=== PATIENT | male | born 1955 | race Caucasian/White ===

== ENCOUNTER 2017-12-03 12:36 | Emergency (ER) | payer MEDICAID ==
[~2017-12-03] VITALS: Ht 172.7 cm; Wt 74.4 kg
[~2017-12-03 12:36] MED LIST: HYDR-569 PO
[2017-12-03 17:22] VITALS: BP 110/89
== END 2017-12-03 17:25 | disposition home or self-care (01) ==
LOC: ER 12:37
DX: K94.09 Other complications of colostomy (principal); F17.200 Nicotine dependence, unspecified, uncomplicated; Z92.21 Personal history of antineoplastic chemotherapy; Z85.51 Personal history of malignant neoplasm of bladder; Z90.89 Acquired absence of other organs; Z88.0 Allergy status to penicillin; Z98.890 Other specified postprocedural states
CPT/HCPCS: 99283

== ENCOUNTER 2019-11-16 15:32 | Emergency (ER) | payer MEDICAID ==
[~2019-11-16] VITALS: Ht 172.7 cm; Wt 65.9 kg
[~2019-11-16 15:32] MED LIST changes: +HYDR-4383 PO; -HYDR-569 PO
[2019-11-16 16:34] LABS: BASOPHILS # (AUTO) 0.1 X10'3 (0-0.2); BASOPHILS % (AUTO) 0.6 % (0-1); EOSINOPHILS # (AUTO) 0.5 X10'3 (0-0.9); EOSINOPHILS % (AUTO) 5.5 % (0-6); HEMATOCRIT 45.3 % (42.0-52.0); HEMOGLOBIN 15.4 g/dl (14.0-17.9); LYMPHOCYTES # (AUTO) 2.5 X10'3 (1.1-4.8); LYMPHOCYTES % (AUTO) 27.5 % (21-51); MEAN CORPUSCULAR HEMOGLOBIN 32.7 PG (27.0-31.0); MEAN CORPUSCULAR VOLUME 96.1 FL (78-98); MEAN PLATELET VOLUME 9.8 FL (7.4-10.4); MONOCYTES % (AUTO) 11.4 % (2-12); PLATELET COUNT 199 X10'3 (140-440); RED BLOOD COUNT 4.72 X10'6 (4.70-6.10); RED CELL DISTRIBUTION WIDTH 14.7 % (11.5-14.5); WHITE BLOOD COUNT 9.1 X10'3 (4.5-11.0)
[2019-11-16 16:48] LABS: ALANINE AMINOTRANSFERASE 16 U/L (12-78); ALBUMIN 3.6 G/DL (3.4-5.0); ALBUMIN/GLOBULIN RATIO 1.1 (1.1-1.5); ALKALINE PHOSPHATASE 68 IU/L (46-116); ANION GAP 2 (8-16); ASPARTATE AMINO TRANSFERASE 20 U/L (10-37); BILIRUBIN,TOTAL 0.5 MG/DL (0.1-1.0); BLOOD UREA NITROGEN 14 MG/DL (7-18); BUN/CREATININE RATIO 13.3 (5.4-32.0); CALCIUM 8.6 MG/DL (8.5-10.1); CHLORIDE 107 MMOL/L (99-107); CREATININE 1.05 MG/DL (0.60-1.10); GLUCOSE 86 MG/DL (70-104); SODIUM 141 MMOL/L (135-145); TOTAL PROTEIN 6.9 G/DL (6.4-8.2); eGFR 71 ML/MIN
[2019-11-16] MEDS ORDERED: iohexol 300mg/ml 100ml inj. ONE (16:56)
[2019-11-16 16:59] LABS: LIPASE 140 U/L (73-393); MAGNESIUM 1.9 MG/DL (1.5-2.4)
--- NOTE | 2019-11-16 18:20 | NUR ---
Assisted pt w/ ostomy bag replacement; urine obtained. Per EDMD okay to use urnie frm bag rathern than wait for fresh urine. Urine out: 200ml
[2019-11-16 18:30] LABS: CLARITY,URINE CLOUDY (Clear); COLOR,URINE YELLOW (Yellow); GLUCOSE, URINE NEGATIVE (Neg); KETONES,URINE NEGATIVE (Neg); LEUKOCYTE ESTERASE ,URINE NEGATIVE (Neg); NITRITES, URINE POSITIVE (Neg); OCCULT BLOOD,URINE NEGATIVE (Neg); PH,URINE 8.5 (4.8-8.0); PROTEIN,URINE NEGATIVE (Neg); UROBILINOGEN,URINE 0.2 E.U/dL (0.2-1.0)
[2019-11-16 18:35] LABS: UA COLLECTION TYPE OTHER
[2019-11-16] MEDS ORDERED: CefTRIAXone 2gm/D5W 50ml 50 ML IV ONE ×2 (18:40→18:50)
[2019-11-16] MEDS ORDERED: SULF1TAB49 PO (18:40)
[2019-11-16 18:41] LABS: BACTERIA,URINE 3+ /HPF (Neg); MUCUS STRANDS MODERATE /LPF (Neg); RBC,URINE NONE SEEN /HPF (0-2); SQUAMOUS EPITHELIAL CELL,UR NONE SEEN /LPF (FEW)
--- NOTE | 2019-11-16 18:47 | NUR ---
NOTIFIED BY PHARMACY OF RISK OF REACTION TO CEFTRIAXONE R/T PENICILLIN ALLERGY. NOTIFIED AND HE CONFIRMED ORDER FOR CEFTRIAXONE.
[2019-11-16 19:27] VITALS: BP 113/66
== END 2019-11-16 19:48 | disposition home or self-care (01) ==
LOC: ER 15:33
DX: N39.0 Urinary tract infection, site not specified (principal); R53.1 Weakness; Z90.81 Acquired absence of spleen; Z93.6 Other artificial openings of urinary tract status; Z98.890 Other specified postprocedural states; Z85.51 Personal history of malignant neoplasm of bladder; Z88.0 Allergy status to penicillin; Z79.899 Other long term (current) drug therapy
CPT/HCPCS: 36415; 71045; 74177; 80053; 81001; 83605; 83690; 83735; 83880; 84439; 84443; 84484; 85025; 87077; 87088; 87186; 93005; 96365; 99284; J0696; Q9967

== ENCOUNTER 2020-08-20 10:33 | Inpatient (IN) | payer MEDICAID ==
[~2020-08-20] VITALS: Ht 182.9 cm; Wt 73.6 kg
[2020-08-20] VITALS (11 sets, daily range): BP systolic 94–138; BP diastolic 55–80
[~2020-08-20 10:33] MED LIST changes: +atropine 0.1mg/ml 10ml syringe ONE; +calcium chloride 100 MG/1 ML inj IV ONE; +etomidate 2mg/ml inj. ONE; +rocuronium 10mg/ml inj IV ONE
[2020-08-20] MEDS ORDERED: calcium chloride 100 MG/1 ML inj IV ONE (10:35)
[2020-08-20] MEDS ORDERED: amiodarone 150mg/dext, iso-os 100 ML IV ONE (10:35)
[2020-08-20 11:03] LABS: BASOPHILS # (AUTO) 0.1 X10'3 (0-0.2); BASOPHILS % (AUTO) 0.9 % (0-1); EOSINOPHILS # (AUTO) 0.8 X10'3 (0-0.9); EOSINOPHILS % (AUTO) 6.6 % (0-6); HEMATOCRIT 43.5 % (42.0-52.0); HEMOGLOBIN 13.9 g/dl (14.0-17.9); LYMPHOCYTES # (AUTO) 5.6 X10'3 (1.1-4.8); LYMPHOCYTES % (AUTO) 45.8 % (21-51); MEAN CORPUSCULAR HEMOGLOBIN 32.8 PG (27.0-31.0); MEAN CORPUSCULAR HGB CONC 32.1 g/dL (33.0-36.5); MEAN CORPUSCULAR VOLUME 102.3 FL (78-98); MEAN PLATELET VOLUME 10.3 FL (7.4-10.4); MONOCYTES % (AUTO) 8.5 % (2-12); NEUTROPHILS # (AUTO) 4.7 X10'3 (1.8-7.7); NEUTROPHILS % (AUTO) 38.2 % (42-75); PLATELET COUNT 187 X10'3 (140-440); RED BLOOD COUNT 4.25 X10'6 (4.70-6.10); RED CELL DISTRIBUTION WIDTH 14.7 % (11.5-14.5); WHITE BLOOD COUNT 12.3 X10'3 (4.5-11.0)
[2020-08-20] MEDS ORDERED: rocuronium 10mg/ml inj IV ONE ×2 (11:05→13:30)
[2020-08-20] MEDS ORDERED: midazolam 100mg in NS 100ml 100 ML IV PRN (11:15)
[2020-08-20] MEDS ORDERED: fentaNYL/PF 50MCG/1 ML 2ML syringe IV PRN (11:15)
[2020-08-20 11:26] LABS: ALANINE AMINOTRANSFERASE 81 U/L (12-78); ALBUMIN 3.1 G/DL (3.4-5.0); ALKALINE PHOSPHATASE 71 IU/L (46-116); ANION GAP 19 (8-16); ASPARTATE AMINO TRANSFERASE 107 U/L (10-37); BILIRUBIN,TOTAL 0.3 MG/DL (0.1-1.0); BLOOD UREA NITROGEN 26 MG/DL (7-18); BUN/CREATININE RATIO 15.9 (5.4-32.0); CALCIUM 8.4 MG/DL (8.5-10.1); CHLORIDE 105 MMOL/L (99-107); CREATININE 1.64 MG/DL (0.60-1.10); GLUCOSE 265 MG/DL (70-104); MAGNESIUM 2.6 MG/DL (1.5-2.4); POTASSIUM 3.6 MMOL/L (3.5-5.1); SODIUM 141 MMOL/L (135-145); TOTAL CARBON DIOXIDE 17.1 MMOL/L (24-32); TOTAL PROTEIN 6.1 G/DL (6.4-8.2); eGFR 43 ML/MIN
[2020-08-20 11:28] LABS: ETHANOL < 0.010 GM/DL (0.0-0.010)
[2020-08-20] MEDS ORDERED: normal saline 1000ML IV soln IVB ONE (11:35)
[2020-08-20] MEDS ORDERED: CefTRIAXone/D5W-Rocephin 1gm 50 ML IV ONE (11:35)
[2020-08-20] MEDS: midazolam 100mg in NS 100ml 100 ML IV PRN ×3 (11:37→23:47)
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
[2020-08-20 11:50] LABS: ABG BASE EXCESS -16.4 mmol/L (-2.0-2.0); ABG HCO3 15.7 mmol/L (22.0-26.0); ABG OXYGEN SATURATION 98.7 % (94-97); ABG PCO2 (T) 64.9 mmHg (35.0-48.0); ABG PO2 (T) 206.9 mmHg (75.0-100.0); ALLEN'S TEST POSITIVE; FCOHb 3.1 % (0.0-3.9); FMetHb 0.3 % (0.0-1.5); FO2Hb 95.3 % (94-97); PEEP 5 cm H2O; RESPIRATORY RATE 20 b/min; TIDAL VOLUME 400 mL; TOTAL HEMOGLOBIN 15.3 G/dl (14.0-18.0)
[2020-08-20] MEDS ORDERED: NO HOME MEDS (12:22)
--- NOTE | 2020-08-20 13:15 | NUR ---
Patient arrived to floor via gurney from CT scan and placed on bedside monitor. Patient appears to be posturing and fighting the ventilator; MD aware. Patient without central line and Dr. Kilgore up to room to place femoral central line.
[2020-08-20] MEDS ORDERED: insulin Lispro (HumaLOG) vial - multi-dose SQ SCH (14:25)
[2020-08-20] MEDS ORDERED: glucagon, human recombinant 1mg kit SUBCUT PRN (14:25)
[2020-08-20] MEDS ORDERED: dextrose ORAL solution 15 GM/59 ML bottle PO PRN ×2 (14:25)
[2020-08-20] MEDS ORDERED: dextrose 50%-water 50ml dispensing syringe IV PRN (14:25)
[2020-08-20] MEDS ORDERED: ondansetron/PF 4mg/2ml inj IV PRN (14:30)
[2020-08-20] MEDS ORDERED: acetaminophen 325mg tablet PO PRN ×2 (14:30)
[2020-08-20] MEDS ORDERED: magnesium hydroxide 30ml (MOM) UD suspension PO PRN (14:30)
[2020-08-20] MEDS ORDERED: potassium Cl 20 mEq SR tablet PO PRN ×2 (14:30)
[2020-08-20] MEDS ORDERED: morphine 4 MG/ML inj SYRINge IV PRN (14:30)
[2020-08-20] MEDS: K, MAG and/or Phos replacement - Verify level? MC SCH (14:30)
[2020-08-20] MEDS ORDERED: LIDOcaine 2% 10ml TOPICAL JELLY (Urojet) TP ONE (14:30)
[2020-08-20] MEDS ORDERED: albuterol 2.5 MG/3 ML nebule NEB PRN (14:30)
[2020-08-20] MEDS ORDERED: morphine 2 MG/ML inj. syringe IV PRN (14:30)
--- NOTE | 2020-08-20 15:15 | NUR ---
Critical lactic acid 5.1 trending down; Dr. Lake aware.
[2020-08-20 15:18] LABS: CLARITY,URINE SLIGHTLY CLOUDY (Clear); COLOR,URINE STRAW (Yellow); GLUCOSE, URINE 500 mg/dl (Neg); KETONES,URINE 15 mg/dl (Neg); LEUKOCYTE ESTERASE ,URINE TRACE (Neg); NITRITES, URINE POSITIVE (Neg); OCCULT BLOOD,URINE LARGE (Neg); PROTEIN,URINE TRACE mg/dl (Neg); UROBILINOGEN,URINE 0.2 E.U/dL (0.2-1.0)
[2020-08-20 15:21] LABS: UA COLLECTION TYPE OTHER
[2020-08-20 15:23] LABS: URINE AMPHETAMINE SCREEN NEGATIVE (Neg); URINE BARBITUATE SCREEN NEGATIVE (Neg); URINE BENZODIAZEPINES SCREEN POSITIVE (Neg); URINE CANNABINOID SCREEN POSITIVE (Neg); URINE COCAINE SCREEN NEGATIVE (Neg); URINE METHADONE SCREEN NEGATIVE (Neg); URINE OPIATE SCREEN NEGATIVE (Neg); URINE PHENCYCLIDINE SCREEN NEGATIVE (Neg)
[2020-08-20 15:34] LABS: HYALINE CASTS 0-3 /LPF (NEGATIVE); SQUAMOUS EPITHELIAL CELL,UR FEW /LPF (FEW)
[2020-08-20 15:36] LABS: BACTERIA,URINE 2+ /HPF (Neg)
[2020-08-20 15:50] LABS: PHOSPHORUS 4.7 MG/DL (2.3-4.5)
--- NOTE | 2020-08-20 15:55 | NUR ---
Critical Troponin of 56.68; Dr. Lake aware. Continue Lovenox instead of Heparin gtt per Dr. Lake.
[2020-08-20] MEDS: pantoprazole 40 MG vial IV SCH (15:58)
[2020-08-20] MEDS: enoxaparin 40mg/0.4ml syringe SUBCUT SCH (15:58)
[2020-08-20 16:26] LABS: ABG BASE EXCESS -11.6 mmol/L (-2.0-2.0); ABG HCO3 16.9 mmol/L (22.0-26.0); ABG OXYGEN SATURATION 95.5 % (94-97); ABG PCO2 (T) 41.9 mmHg (35.0-48.0); ABG PO2 (T) 74.7 mmHg (75.0-100.0); ALLEN'S TEST POSITIVE; FCOHb 1.6 % (0.0-3.9); FMetHb 0.1 % (0.0-1.5); FO2Hb 93.9 % (94-97); PATIENT TEMPERATURE 34.2; PEEP 5 cm H2O; RESPIRATORY RATE 24 b/min; TIDAL VOLUME 400 mL; TOTAL HEMOGLOBIN 15.5 G/dl (14.0-18.0)
[2020-08-20] MEDS: sodium chloride 0.45% 1,000 ML IV SCH (16:45)
[2020-08-20] MEDS ORDERED: NORepinephrine 8mg/ 250ml NS 250 ML IV ONE (16:48)
[2020-08-20] MEDS: NORepinephrine 8mg/ 250ml NS 250 ML IV SCH (16:56)
[2020-08-20] MEDS ORDERED: DOPamine 400mg/D5W 250ml 250 ML IV ONE (17:06)
--- NOTE | 2020-08-20 17:15 | NUR ---
Patient's HR dropped down to as low as 47bpm and SBP dropped into the 70s. Initially started Levophed before HR dropped; however, after contacting Dr. Boggs, orders to start Dopamine. Patient appears to be tolerating.
[2020-08-20 17:16] LABS: ALBUMIN 2.8 G/DL (3.4-5.0); ANION GAP 10 (8-16); BLOOD UREA NITROGEN 25 MG/DL (7-18); BUN/CREATININE RATIO 20.5 (5.4-32.0); CHLORIDE 111 MMOL/L (99-107); CREATININE 1.22 MG/DL (0.60-1.10); GLUCOSE 217 MG/DL (70-104); MAGNESIUM 1.7 MG/DL (1.5-2.4); PHOSPHORUS 3.1 MG/DL (2.3-4.5); POTASSIUM 3.7 MMOL/L (3.5-5.1); SODIUM 144 MMOL/L (135-145); TOTAL CARBON DIOXIDE 22.7 MMOL/L (24-32); eGFR 60 ML/MIN
[2020-08-20] MEDS: DOPamine 400mg/D5W 250ml 250 ML IV SCH (17:38)
[2020-08-20] MEDS: FENTANYL-0.9 % NACL/PF 100 ML IV PRN (18:04)
[2020-08-20] MEDS: CISatracurium besylate inj. 100 MG in normal saline 100ml IV soln 90 ML IV PRN (18:05)
--- NOTE | 2020-08-20 18:25 | NUR ---
Problems reprioritized. Patient report given, questions answered & plan of care reviewed with Radha DAVE.
--- NOTE | 2020-08-20 18:30 | NUR ---
Patient in room ICU 2043. I have received report from Graeme DAVE and had the opportunity to ask questions and assume patient care. TTM in progress. Patient having seizure like movements, BIS:91, appears to be shivering. Asynchronous w/ vent. Titrating sedation and paralytic per TTM orders and to maintain vent synchrony. Will continue to monitor. Addendum: 08/20/20 at 2039 by Radha Mooney RN Amended: Links added.
[2020-08-20] MEDS ORDERED: TRAZ-256 PO (18:43)
[2020-08-20] MEDS ORDERED: DIVA-76 PO (18:43)
[2020-08-20 22:04] LABS: ALBUMIN 3.3 G/DL (3.4-5.0); ANION GAP 11 (8-16); CHLORIDE 106 MMOL/L (99-107); CREATININE 1.11 MG/DL (0.60-1.10); GLUCOSE 112 MG/DL (70-104); MAGNESIUM 1.8 MG/DL (1.5-2.4); PHOSPHORUS 2.5 MG/DL (2.3-4.5); POTASSIUM 3.8 MMOL/L (3.5-5.1); SODIUM 140 MMOL/L (135-145); TOTAL CARBON DIOXIDE 23.2 MMOL/L (24-32); eGFR 67 ML/MIN
[2020-08-20 22:10] LABS: BLOOD UREA NITROGEN 28 MG/DL (7-18); BUN/CREATININE RATIO 25.2 (5.4-32.0)
[2020-08-20] MEDS: insulin glargine (Lantus) pen - multi-dose SQ SCH (22:19)
[2020-08-20 22:30] LABS: ABG BASE EXCESS -8.2 mmol/L (-2.0-2.0); ABG HCO3 19.8 mmol/L (22.0-26.0); ABG OXYGEN SATURATION 94.8 % (94-97); ABG PCO2 (T) 42.4 mmHg (35.0-48.0); ABG PO2 (T) 63.9 mmHg (75.0-100.0); ALLEN'S TEST POSITIVE; FCOHb 0.6 % (0.0-3.9); FMetHb 0.2 % (0.0-1.5); PATIENT TEMPERATURE 33.3; PEEP 5 cm H2O; RESPIRATORY RATE 24 b/min; TIDAL VOLUME 400 mL; TOTAL HEMOGLOBIN 16.5 G/dl (14.0-18.0)
[2020-08-20 22:30] LABS: OXYGEN SATURATION (MIXED VEN) 68.9 % (60-80); PO2 MIXED VENOUS (TEMP COR) 29.7 mmHg (35-46)
[2020-08-21] VITALS (24 sets, daily range): BP systolic 78–126; BP diastolic 53–88
[2020-08-21] MEDS: FENTANYL-0.9 % NACL/PF 100 ML IV PRN ×3 (00:49→22:43)
--- NOTE | 2020-08-21 02:53 | NUR ---
0223: Monitor changes noted. QRS interval widened, rate increased to 93 BPM. See strips in chart. ST elevation noted, AM labs drawn, EKG obtained but rhythm had changed back to sinus bradycardia. Acacia at bedside. Dopamine off. Titrating Levophed to keep MAP greater than 60. Will continue to monitor.
--- NOTE | 2020-08-21 03:25 | NUR ---
Cooling measures in progress. Titrating Levophed to maintain MAP greater than 60.
[2020-08-21 03:32] LABS: PARTIAL THROMBOPLASTIN TIME 34 SECONDS (22-32)
[2020-08-21 03:44] LABS: ALANINE AMINOTRANSFERASE 140 U/L (12-78); ALBUMIN 3.2 G/DL (3.4-5.0); ALBUMIN/GLOBULIN RATIO 0.9 (1.1-1.5); ALKALINE PHOSPHATASE 62 IU/L (46-116); ANION GAP 12 (8-16); ASPARTATE AMINO TRANSFERASE 505 U/L (10-37); BILIRUBIN,TOTAL 0.4 MG/DL (0.1-1.0); BLOOD UREA NITROGEN 30 MG/DL (7-18); BUN/CREATININE RATIO 27.5 (5.4-32.0); CALCIUM 8.1 MG/DL (8.5-10.1); CHLORIDE 109 MMOL/L (99-107); CREATININE 1.09 MG/DL (0.60-1.10); GLUCOSE 120 MG/DL (70-104); MAGNESIUM 1.8 MG/DL (1.5-2.4); PHOSPHORUS 3.3 MG/DL (2.3-4.5); POTASSIUM 3.8 MMOL/L (3.5-5.1); SODIUM 142 MMOL/L (135-145); TOTAL CARBON DIOXIDE 21.5 MMOL/L (24-32); TOTAL PROTEIN 6.7 G/DL (6.4-8.2); eGFR 68 ML/MIN
[2020-08-21 03:46] LABS: BASOPHILS # (AUTO) 0.1 X10'3 (0-0.2); BASOPHILS % (AUTO) 0.3 % (0-1); EOSINOPHILS % (AUTO) 0.1 % (0-6); HEMATOCRIT 47.9 % (42.0-52.0); HEMOGLOBIN 15.8 g/dl (14.0-17.9); LYMPHOCYTES # (AUTO) 1.3 X10'3 (1.1-4.8); LYMPHOCYTES % (AUTO) 6.2 % (21-51); MEAN CORPUSCULAR HEMOGLOBIN 32.8 PG (27.0-31.0); MEAN CORPUSCULAR VOLUME 99.5 FL (78-98); MEAN PLATELET VOLUME 10.3 FL (7.4-10.4); MONOCYTES # (AUTO) 1.6 X10'3 (0-0.9); MONOCYTES % (AUTO) 7.7 % (2-12); NEUTROPHILS # (AUTO) 17.8 X10'3 (1.8-7.7); NEUTROPHILS % (AUTO) 85.7 % (42-75); PLATELET COUNT 223 X10'3 (140-440); RED BLOOD COUNT 4.82 X10'6 (4.70-6.10); RED CELL DISTRIBUTION WIDTH 14.1 % (11.5-14.5); WHITE BLOOD COUNT 20.8 X10'3 (4.5-11.0)
[2020-08-21] MEDS: sodium chloride 0.45% 1,000 ML IV SCH ×2 (03:50→17:16)
[2020-08-21 04:09] LABS: TROPONIN I 109.05 NG/ML (0.0-0.05)
[2020-08-21 04:20] LABS: ABG BASE EXCESS -9.7 mmol/L (-2.0-2.0); ABG OXYGEN SATURATION 97.4 % (94-97); ABG PCO2 (T) 29.2 mmHg (35.0-48.0); ABG PO2 (T) 76.9 mmHg (75.0-100.0); FCOHb 0.5 % (0.0-3.9); FMetHb 0.1 % (0.0-1.5); FO2Hb 96.8 % (94-97); PATIENT TEMPERATURE 32.9; PEEP 5 cm H2O; RESPIRATORY RATE 24 b/min; TIDAL VOLUME 400 mL; TOTAL HEMOGLOBIN 16.4 G/dl (14.0-18.0)
[2020-08-21 04:25] LABS: OXYGEN SATURATION (MIXED VEN) 66.4 % (60-80)
[2020-08-21] MEDS: midazolam 100mg in NS 100ml 100 ML IV PRN ×4 (05:00→22:26)
--- NOTE | 2020-08-21 06:12 | NUR ---
Problems reprioritized. Patient report given, questions answered & plan of care reviewed with Graeme DAVE.
[2020-08-21] MEDS: pantoprazole 40 MG vial IV SCH (07:15)
[2020-08-21] MEDS: enoxaparin 40mg/0.4ml syringe SUBCUT SCH (07:15)
[2020-08-21] MEDS: K, MAG and/or Phos replacement - Verify level? MC SCH (08:00)
[2020-08-21] MEDS: NORepinephrine 8mg/ 250ml NS 250 ML IV SCH ×2 (09:07→21:28)
[2020-08-21 09:26] LABS: ALBUMIN 2.9 G/DL (3.4-5.0); ANION GAP 11 (8-16); BLOOD UREA NITROGEN 33 MG/DL (7-18); BUN/CREATININE RATIO 27.3 (5.4-32.0); CALCIUM 8.2 MG/DL (8.5-10.1); CHLORIDE 107 MMOL/L (99-107); CREATININE 1.21 MG/DL (0.60-1.10); GLUCOSE 119 MG/DL (70-104); MAGNESIUM 1.8 MG/DL (1.5-2.4); PHOSPHORUS 3.8 MG/DL (2.3-4.5); POTASSIUM 3.9 MMOL/L (3.5-5.1); SODIUM 138 MMOL/L (135-145); TOTAL CARBON DIOXIDE 19.6 MMOL/L (24-32); eGFR 60 ML/MIN
[2020-08-21 09:51] LABS: ABG BASE EXCESS -10.4 mmol/L (-2.0-2.0); ABG HCO3 14.7 mmol/L (22.0-26.0); ABG OXYGEN SATURATION 96.6 % (94-97); ABG PCO2 (T) 26.3 mmHg (35.0-48.0); ABG PO2 (T) 64.9 mmHg (75.0-100.0); ALLEN'S TEST POSITIVE; FCOHb 0.8 % (0.0-3.9); FLOW 60 L/min; FMetHb 0.1 % (0.0-1.5); FO2Hb 95.7 % (94-97); PEEP 5 cm H2O; RESPIRATORY RATE 24 b/min; TIDAL VOLUME 400 mL; TOTAL HEMOGLOBIN 16.3 G/dl (14.0-18.0)
[2020-08-21] MEDS: CefTRIAXone/D5W-Rocephin 1gm 50 ML IV SCH (11:05)
--- NOTE | 2020-08-21 11:30 | NUR ---
TF consult: Pt brought to the ED via EMS for concerns of possible cardiopulmonary arrest per ED report. Pt intubated and on cooling measures following CPR. OG tube in place. TF recommendations below were calculated using IBW as unknown actual current wt given +6.5 kg in same day. No documented LBM, with a colostomy in place. PRN bowel care available. Pt with a low Everardo of 11, no edema or wounds documented in physical assessment. Will continue to follow closely and make recommendations as appropriate. Recommendations: 1) Continuous TF via OG tube using Vital AF with goal rate of 70 mL/hr. To begin at 20 mL/hr and advance by 20 mL Q8H as tolerated to goal rate. To provide: 1680 mL total volume/day, 2016 kcal, 126 g protein, and 1362 mL water 2) Additional 200 mL water flush Q4H; monitor serum Na 3) Prealbumin q Sunday/; daily weights 4) Bowel care per rx Addendum: 08/21/20 at [address] Amended: Links added.
[2020-08-21 11:41] LABS: TROPONIN I 93.39 NG/ML (0.0-0.05)
--- NOTE | 2020-08-21 12:00 | NUR ---
Critical Troponin of 93.39, continuing to trend down. Dr. Banks aware and orders to D/C troponin checks as well as lactic acid checks. Also, aware of Lovenox administration vs Heparin gtt and that patient has been in a junctional rhythm. No new orders at this time.
[2020-08-21] MEDS: insulin regular, human U-100 3ml vial - multi-dose SQ SCH ×2 (13:39→21:25)
[2020-08-21] MEDS: DOPamine 400mg/D5W 250ml 250 ML IV SCH (15:17)
[2020-08-21 16:21] LABS: ABG HCO3 14.6 mmol/L (22.0-26.0); ABG OXYGEN SATURATION 97.7 % (94-97); ABG PCO2 (T) 25.1 mmHg (35.0-48.0); ABG PO2 (T) 79.1 mmHg (75.0-100.0); ALLEN'S TEST POSITIVE; FCOHb 0.2 % (0.0-3.9); FLOW 60 L/min; FMetHb 0.2 % (0.0-1.5); FO2Hb 97.3 % (94-97); PATIENT TEMPERATURE 33.1; PEEP 5 cm H2O; RESPIRATORY RATE 24 b/min; TIDAL VOLUME 400 mL; TOTAL HEMOGLOBIN 16.8 G/dl (14.0-18.0)
[2020-08-21 16:35] LABS: ALBUMIN 2.7 G/DL (3.4-5.0); ANION GAP 13 (8-16); BLOOD UREA NITROGEN 29 MG/DL (7-18); BUN/CREATININE RATIO 26.1 (5.4-32.0); CALCIUM 7.9 MG/DL (8.5-10.1); CHLORIDE 107 MMOL/L (99-107); CREATININE 1.11 MG/DL (0.60-1.10); GLUCOSE 112 MG/DL (70-104); MAGNESIUM 1.8 MG/DL (1.5-2.4); PHOSPHORUS 3.8 MG/DL (2.3-4.5); POTASSIUM 3.8 MMOL/L (3.5-5.1); SODIUM 139 MMOL/L (135-145); TOTAL CARBON DIOXIDE 19.5 MMOL/L (24-32); eGFR 67 ML/MIN
[2020-08-21] MEDS: CISatracurium besylate inj. 100 MG in normal saline 100ml IV soln 90 ML IV PRN (17:37)
--- NOTE | 2020-08-21 18:07 | NUR ---
Problems reprioritized. Patient report given, questions answered & plan of care reviewed with Radha DAVE.
--- NOTE | 2020-08-21 19:00 | NUR ---
Patient in room ICU 2043. I have received report from Graeme DAVE and had the opportunity to ask questions and assume patient care. Addendum: 08/21/20 at 1950 by Radha Mooney RN Amended: Links added.
[2020-08-21] MEDS: divalproex sodium 500mg tablet.DR PO SCH ×2 (20:00→21:27)
[2020-08-21] MEDS: insulin glargine (Lantus) pen - multi-dose SQ SCH (21:26)
[2020-08-21] MEDS: valproate sod 250mg/5ml UD oral syrup PO SCH (22:02)
[2020-08-22] VITALS (24 sets, daily range): BP systolic 83–140; BP diastolic 53–87
[2020-08-22] MEDS: dextrose 50%-water 50ml dispensing syringe IV PRN (01:52)
[2020-08-22] MEDS: valproate sod 250mg/5ml UD oral syrup PO SCH ×5 (01:55→20:58)
[2020-08-22 02:36] LABS: BASOPHILS % (AUTO) 0.2 % (0-1); EOSINOPHILS % (AUTO) 0.2 % (0-6); HEMATOCRIT 43.4 % (42.0-52.0); HEMOGLOBIN 14.4 g/dl (14.0-17.9); LYMPHOCYTES # (AUTO) 2.6 X10'3 (1.1-4.8); LYMPHOCYTES % (AUTO) 16.7 % (21-51); MEAN CORPUSCULAR HEMOGLOBIN 32.4 PG (27.0-31.0); MEAN CORPUSCULAR HGB CONC 33.1 g/dL (33.0-36.5); MEAN PLATELET VOLUME 10.3 FL (7.4-10.4); MONOCYTES % (AUTO) 6.6 % (2-12); NEUTROPHILS % (AUTO) 76.3 % (42-75); PLATELET COUNT 187 X10'3 (140-440); RED BLOOD COUNT 4.43 X10'6 (4.70-6.10); RED CELL DISTRIBUTION WIDTH 14.3 % (11.5-14.5); WHITE BLOOD COUNT 15.7 X10'3 (4.5-11.0)
[2020-08-22 02:40] LABS: ABG BASE EXCESS -5.1 mmol/L (-2.0-2.0); ABG OXYGEN SATURATION 94.3 % (94-97); ABG PCO2 (T) 31.6 mmHg (35.0-48.0); ABG PO2 (T) 64.4 mmHg (75.0-100.0); FCOHb 0.4 % (0.0-3.9); FMetHb 0.2 % (0.0-1.5); FO2Hb 93.7 % (94-97); PEEP 5 cm H2O; RESPIRATORY RATE 24 b/min; TIDAL VOLUME 400 mL; TOTAL HEMOGLOBIN 15.2 G/dl (14.0-18.0)
[2020-08-22 02:46] LABS: PARTIAL THROMBOPLASTIN TIME 34 SECONDS (22-32)
[2020-08-22 02:52] LABS: ALANINE AMINOTRANSFERASE 89 U/L (12-78); ALBUMIN 2.5 G/DL (3.4-5.0); ALBUMIN/GLOBULIN RATIO 0.9 (1.1-1.5); ALKALINE PHOSPHATASE 53 IU/L (46-116); ANION GAP 8 (8-16); ASPARTATE AMINO TRANSFERASE 191 U/L (10-37); BILIRUBIN,TOTAL 0.3 MG/DL (0.1-1.0); BLOOD UREA NITROGEN 25 MG/DL (7-18); BUN/CREATININE RATIO 22.1 (5.4-32.0); CHLORIDE 112 MMOL/L (99-107); CREATININE 1.13 MG/DL (0.60-1.10); GLUCOSE 55 MG/DL (70-104); MAGNESIUM 1.7 MG/DL (1.5-2.4); PHOSPHORUS 3.5 MG/DL (2.3-4.5); POTASSIUM 3.4 MMOL/L (3.5-5.1); SODIUM 140 MMOL/L (135-145); TOTAL CARBON DIOXIDE 20.1 MMOL/L (24-32); TOTAL PROTEIN 5.4 G/DL (6.4-8.2); eGFR 65 ML/MIN
[2020-08-22 05:21] LABS: HEMOGLOBIN A1C 5.4 % (4.5-6.2)
[2020-08-22] MEDS: NORepinephrine 8mg/ 250ml NS 250 ML IV SCH ×3 (05:39→15:11)
[2020-08-22] MEDS: midazolam 100mg in NS 100ml 100 ML IV PRN (05:40)
--- NOTE | 2020-08-22 06:30 | NUR ---
Problems reprioritized. Patient report given, questions answered & plan of care reviewed with Eleni DAVE.
[2020-08-22] MEDS: sodium chloride 0.45% 1,000 ML IV SCH ×2 (07:22→22:32)
[2020-08-22] MEDS: K, MAG and/or Phos replacement - Verify level? MC SCH (08:00)
[2020-08-22] MEDS: CefTRIAXone/D5W-Rocephin 1gm 50 ML IV SCH (08:15)
[2020-08-22] MEDS: enoxaparin 40mg/0.4ml syringe SUBCUT SCH (08:16)
[2020-08-22] MEDS: pantoprazole 40 MG vial IV SCH (08:16)
[2020-08-22] MEDS ORDERED: POTASSIUM BICARB 20meq eff tab 20 MEQ TABLET.EFF PO PRN (09:04)
[2020-08-22] MEDS: POTASSIUM BICARB 20meq eff tab 20 MEQ TABLET.EFF PO PRN (12:06)
[2020-08-22] MEDS: DOPamine 400mg/D5W 250ml 250 ML IV SCH (14:31)
[2020-08-22] MEDS: FENTANYL-0.9 % NACL/PF 100 ML IV PRN (15:10)
[2020-08-22] MEDS: lactobacillus rhamnosus 10,000 MMU CELLS/CAPSULE PO SCH (20:58)
[2020-08-22] MEDS: insulin glargine (Lantus) pen - multi-dose SQ SCH (20:58)
[2020-08-23] VITALS (24 sets, daily range): BP systolic 83–121; BP diastolic 55–81
[2020-08-23] MEDS: valproate sod 250mg/5ml UD oral syrup PO SCH ×4 (02:22→20:27)
[2020-08-23 03:11] LABS: BASOPHILS % (AUTO) 0.1 % (0-1); EOSINOPHILS % (AUTO) 0.1 % (0-6); HEMATOCRIT 41.9 % (42.0-52.0); HEMOGLOBIN 13.9 g/dl (14.0-17.9); LYMPHOCYTES # (AUTO) 1.6 X10'3 (1.1-4.8); LYMPHOCYTES % (AUTO) 10.3 % (21-51); MEAN CORPUSCULAR HEMOGLOBIN 32.6 PG (27.0-31.0); MEAN CORPUSCULAR HGB CONC 33.2 g/dL (33.0-36.5); MEAN CORPUSCULAR VOLUME 98.3 FL (78-98); MONOCYTES # (AUTO) 1.3 X10'3 (0-0.9); MONOCYTES % (AUTO) 8.7 % (2-12); NEUTROPHILS # (AUTO) 12.3 X10'3 (1.8-7.7); NEUTROPHILS % (AUTO) 80.8 % (42-75); PLATELET COUNT 148 X10'3 (140-440); RED BLOOD COUNT 4.27 X10'6 (4.70-6.10); RED CELL DISTRIBUTION WIDTH 14.4 % (11.5-14.5); WHITE BLOOD COUNT 15.3 X10'3 (4.5-11.0)
[2020-08-23 03:26] LABS: PARTIAL THROMBOPLASTIN TIME 33 SECONDS (22-32)
[2020-08-23 03:33] LABS: ALANINE AMINOTRANSFERASE 75 U/L (12-78); ALBUMIN 2.5 G/DL (3.4-5.0); ALBUMIN/GLOBULIN RATIO 0.7 (1.1-1.5); ALKALINE PHOSPHATASE 63 IU/L (46-116); ANION GAP 8 (8-16); ASPARTATE AMINO TRANSFERASE 118 U/L (10-37); BILIRUBIN,TOTAL 0.3 MG/DL (0.1-1.0); BLOOD UREA NITROGEN 17 MG/DL (7-18); BUN/CREATININE RATIO 20.7 (5.4-32.0); CALCIUM 7.9 MG/DL (8.5-10.1); CHLORIDE 102 MMOL/L (99-107); CREATININE 0.82 MG/DL (0.60-1.10); GLUCOSE 112 MG/DL (70-104); MAGNESIUM 1.7 MG/DL (1.5-2.4); PHOSPHORUS 2.6 MG/DL (2.3-4.5); POTASSIUM 3.4 MMOL/L (3.5-5.1); PREALBUMIN 17.2 MG/DL (19-36); SODIUM 134 MMOL/L (135-145); TOTAL CARBON DIOXIDE 24.2 MMOL/L (24-32); TOTAL PROTEIN 5.9 G/DL (6.4-8.2); eGFR > 90 ML/MIN
--- NOTE | 2020-08-23 03:35 | NUR ---
While turning the patient to side during a bed bath, pt was observed to have yellow emesis of small white chunks of possible food contents. Pt was immediately suctioned via oral and oralpharyngeal. Pt was then connected to continuous suctioned via OG tube and was observed to have an output of approx 650 ml of frothy chavez/yellow gastric content. STORE MERCHANDISER Eleuterio was then notified, STORE MERCHANDISER ordered for residuals to be rechecked in a hour. If residuals are WNL then to restart tube feed at a trickle rate of 20 mls/hr until returned back to goal. Will continue to monitor.
[2020-08-23] MEDS: POTASSIUM BICARB 20meq eff tab 20 MEQ TABLET.EFF PO PRN ×3 (04:45→16:15)
--- NOTE | 2020-08-23 04:56 | NUR ---
Gastric residuals have been reassessed to have 0 mL output. No additional gastric output observed from the continuous suction Tube feed has restarted at 20 mL. Free water has also been held due to pt's Na level being 134. FOUNTAIN WORKER aware. Will continue to monitor.
--- NOTE | 2020-08-23 06:30 | NUR ---
Patient in room ICU 2043. I have received report from Pam DAVE and had the opportunity to ask questions and assume patient care.
--- NOTE | 2020-08-23 06:30 | NUR ---
Problems reprioritized. Patient report given, questions answered & plan of care reviewed with TENZIN Gunn.
[2020-08-23] MEDS: dextrose 50%-water 50ml dispensing syringe IV PRN ×3 (08:22→14:08)
[2020-08-23] MEDS: CefTRIAXone/D5W-Rocephin 1gm 50 ML IV SCH (08:26)
[2020-08-23] MEDS: lactobacillus rhamnosus 10,000 MMU CELLS/CAPSULE PO SCH ×2 (08:26→20:27)
[2020-08-23] MEDS: pantoprazole 40 MG vial IV SCH (08:26)
[2020-08-23] MEDS: K, MAG and/or Phos replacement - Verify level? MC SCH (08:27)
[2020-08-23] MEDS: enoxaparin 40mg/0.4ml syringe SUBCUT SCH (08:27)
[2020-08-23 10:45] LABS: ABG BASE EXCESS -3.9 mmol/L (-2.0-2.0); ABG HCO3 22.3 mmol/L (22.0-26.0); ABG OXYGEN SATURATION 94.9 % (94-97); ABG PCO2 (T) 43.7 mmHg (35.0-48.0); ABG PO2 (T) 71.5 mmHg (75.0-100.0); ALLEN'S TEST POSITIVE; FCOHb 0.1 % (0.0-3.9); FO2Hb 94.8 % (94-97); PATIENT TEMPERATURE 36.6; PEEP 5 cm H2O; RESPIRATORY RATE 24 b/min; TIDAL VOLUME 400 mL
[2020-08-23] MEDS: sodium chloride 0.45% 1,000 ML IV SCH (12:33)
[2020-08-23] MEDS: dextrose 5%-normal saline 1,000 ML IV SCH (15:16)
[2020-08-23] MEDS: NORepinephrine 8mg/ 250ml NS 250 ML IV SCH (15:29)
[2020-08-23] MEDS: midazolam 100mg in NS 100ml 100 ML IV PRN (16:54)
[2020-08-23] MEDS: docusate sodium 100mg/10ml UD cup PO SCH (20:27)
[2020-08-23] MEDS: insulin glargine (Lantus) pen - multi-dose SQ SCH (20:34)
[2020-08-24] VITALS (23 sets, daily range): BP systolic 88–132; BP diastolic 51–81
[2020-08-24 02:48] LABS: BASOPHILS # (AUTO) 0.1 X10'3 (0-0.2); BASOPHILS % (AUTO) 0.5 % (0-1); EOSINOPHILS % (AUTO) 0 % (0-6)
[2020-08-24 02:49] LABS: HEMATOCRIT 42.3 % (42.0-52.0); HEMOGLOBIN 14.2 g/dl (14.0-17.9); LYMPHOCYTES # (AUTO) 1.6 X10'3 (1.1-4.8); MEAN CORPUSCULAR HEMOGLOBIN 32.6 PG (27.0-31.0); MEAN CORPUSCULAR HGB CONC 33.5 g/dL (33.0-36.5); MEAN CORPUSCULAR VOLUME 97.2 FL (78-98); MEAN PLATELET VOLUME 10.6 FL (7.4-10.4); MONOCYTES # (AUTO) 1.3 X10'3 (0-0.9); MONOCYTES % (AUTO) 7.5 % (2-12); NEUTROPHILS # (AUTO) 14.8 X10'3 (1.8-7.7); PLATELET COUNT 120 X10'3 (140-440); RED BLOOD COUNT 4.36 X10'6 (4.70-6.10); RED CELL DISTRIBUTION WIDTH 14.1 % (11.5-14.5); WHITE BLOOD COUNT 17.8 X10'3 (4.5-11.0)
[2020-08-24] MEDS: valproate sod 250mg/5ml UD oral syrup PO SCH ×2 (02:50→07:50)
[2020-08-24] MEDS: acetaminophen 325mg/10.15ml oral unit dose solution PO PRN ×2 (02:50→10:40)
[2020-08-24 03:00] LABS: ALANINE AMINOTRANSFERASE 63 U/L (12-78); ALBUMIN 2.2 G/DL (3.4-5.0); ALBUMIN/GLOBULIN RATIO 0.6 (1.1-1.5); ALKALINE PHOSPHATASE 63 IU/L (46-116); ANION GAP 9 (8-16); ASPARTATE AMINO TRANSFERASE 125 U/L (10-37); BILIRUBIN,TOTAL 0.6 MG/DL (0.1-1.0); BLOOD UREA NITROGEN 14 MG/DL (7-18); BUN/CREATININE RATIO 17.9 (5.4-32.0); CHLORIDE 99 MMOL/L (99-107); CREATININE 0.78 MG/DL (0.60-1.10); GLUCOSE 93 MG/DL (70-104); MAGNESIUM 1.7 MG/DL (1.5-2.4); PARTIAL THROMBOPLASTIN TIME 24 SECONDS (22-32); PHOSPHORUS 2.3 MG/DL (2.3-4.5); POTASSIUM 4.5 MMOL/L (3.5-5.1); SODIUM 136 MMOL/L (135-145); TOTAL CARBON DIOXIDE 27.7 MMOL/L (24-32); TOTAL PROTEIN 6.2 G/DL (6.4-8.2); eGFR > 90 ML/MIN
[2020-08-24 03:06] LABS: CALCIUM 8.5 MG/DL (8.5-10.1)
[2020-08-24 03:31] LABS: ABG BASE EXCESS 2.1 mmol/L (-2.0-2.0); ABG HCO3 25.8 mmol/L (22.0-26.0); ABG OXYGEN SATURATION 94.5 % (94-97); ABG PCO2 (T) 37.8 mmHg (35.0-48.0); ABG PO2 (T) 67.6 mmHg (75.0-100.0); ALLEN'S TEST POSITIVE; FCOHb 0.7 % (0.0-3.9); FMetHb 0.3 % (0.0-1.5); FO2Hb 93.6 % (94-97); PATIENT TEMPERATURE 37.1; PEEP 5 cm H2O; TOTAL HEMOGLOBIN 14.2 G/dl (14.0-18.0)
[2020-08-24] MEDS: dextrose 5%-normal saline 1,000 ML IV SCH ×2 (04:59→22:00)
--- NOTE | 2020-08-24 06:20 | NUR ---
Patient in room ICU 2043. I have received report from Pam DAVE and had the opportunity to ask questions and assume patient care.
--- NOTE | 2020-08-24 07:03 | NUR ---
Patient in room ICU 2043. I have received report from Pam DAVE and had the opportunity to ask questions and assume patient care.
[2020-08-24] MEDS: pantoprazole 40 MG vial IV SCH (07:50)
[2020-08-24] MEDS: docusate sodium 100mg/10ml UD cup PO SCH (07:50)
[2020-08-24] MEDS: lactobacillus rhamnosus 10,000 MMU CELLS/CAPSULE PO SCH (07:51)
[2020-08-24] MEDS: enoxaparin 40mg/0.4ml syringe SUBCUT SCH (07:51)
[2020-08-24] MEDS: CefTRIAXone/D5W-Rocephin 1gm 50 ML IV SCH (07:51)
[2020-08-24] MEDS: K, MAG and/or Phos replacement - Verify level? MC SCH (08:00)
[2020-08-24] MEDS ORDERED: dextrose ORAL solution 15 GM/59 ML bottle OGT PRN ×2 (10:48)
[2020-08-24] MEDS ORDERED: acetaminophen 325mg/10.15ml oral unit dose solution OGT PRN ×2 (10:48)
[2020-08-24] MEDS ORDERED: POTASSIUM BICARB 20meq eff tab 20 MEQ TABLET.EFF OGT PRN (10:51)
[2020-08-24] MEDS ORDERED: magnesium hydroxide 30ml (MOM) UD suspension OGT PRN (10:51)
--- NOTE | 2020-08-24 10:53 | NUR ---
Reassessment: Pt tolerating TF at 60ml/hr advancing to goal GRV WNL. No BM yet this admit day 4 started on colace yesterday. Receiving Dex/NS for prior low Glu yesterday w/ Glu WNL today per RN. Will continue to monitor. Recommendations: 1) Continuous TF via OG tube using Vital AF with goal rate of 70 mL/hr. To begin at 20 mL/hr and advance by 20 mL Q8H as tolerated to goal rate. To provide: 1680 mL total volume/day, 2016 kcal, 126 g protein, and 1362 mL water 2) Additional 200 mL water flush Q4H; monitor serum Na 3) Prealbumin q Sunday/; daily weights 4) Bowel care per rx Addendum: 08/24/20 at [address] Amended: Links added.
--- NOTE | 2020-08-24 11:21 | NUR ---
Dr. Banks informed of WBC increased to 17.8. No new orders at this time.
--- NOTE | 2020-08-24 12:55 | NUR ---
Wound care at bedside to see pt. Pt is intubated and sedated. Urostomy in right lower abdomen was leaking, bag removed, cleansed skin and dried. There is some mechanical stripping and irritant dermatitis from the leak. A fair amount of mucus was present when removing the bag. Applied ostomy powder and barrier crusting, then applied a new urostomy bag. Addendum: 08/24/20 at 1258 by Delmy Gagnon RN Amended: Links added.
[2020-08-24] MEDS: valproate sod 250mg/5ml UD oral syrup OGT SCH ×2 (15:57→19:52)
--- NOTE | 2020-08-24 18:16 | NUR ---
Problems reprioritized. Patient report given, questions answered & plan of care reviewed with Danyelle Will RN.
--- NOTE | 2020-08-24 18:35 | NUR ---
I received report and assumed care of pt.
[2020-08-24] MEDS: docusate sodium 100mg/10ml UD cup OGT SCH (19:52)
[2020-08-24] MEDS: lactobacillus rhamnosus 10,000 MMU CELLS/CAPSULE OGT SCH (19:53)
[2020-08-24] MEDS: insulin glargine (Lantus) pen - multi-dose SQ SCH (21:00)
[2020-08-25] VITALS (24 sets, daily range): BP systolic 87–124; BP diastolic 35–76
[2020-08-25] MEDS: midazolam 100mg in NS 100ml 100 ML IV PRN ×3 (00:17→22:55)
[2020-08-25 03:05] LABS: BASOPHILS % (AUTO) 0.2 % (0-1); EOSINOPHILS % (AUTO) 0.1 % (0-6); HEMATOCRIT 36.6 % (42.0-52.0); HEMOGLOBIN 12.2 g/dl (14.0-17.9); MEAN CORPUSCULAR HEMOGLOBIN 32.2 PG (27.0-31.0); MEAN CORPUSCULAR HGB CONC 33.2 g/dL (33.0-36.5); MEAN PLATELET VOLUME 10.3 FL (7.4-10.4); MONOCYTES # (AUTO) 1.1 X10'3 (0-0.9); MONOCYTES % (AUTO) 9.7 % (2-12); NEUTROPHILS # (AUTO) 9.4 X10'3 (1.8-7.7); PLATELET COUNT 116 X10'3 (140-440); RED BLOOD COUNT 3.77 X10'6 (4.70-6.10); RED CELL DISTRIBUTION WIDTH 13.9 % (11.5-14.5); WHITE BLOOD COUNT 11.6 X10'3 (4.5-11.0)
[2020-08-25 03:14] LABS: PARTIAL THROMBOPLASTIN TIME 33 SECONDS (22-32)
[2020-08-25 03:22] LABS: ALANINE AMINOTRANSFERASE 42 U/L (12-78); ALBUMIN 1.9 G/DL (3.4-5.0); ALBUMIN/GLOBULIN RATIO 0.6 (1.1-1.5); ALKALINE PHOSPHATASE 52 IU/L (46-116); ANION GAP 9 (8-16); ASPARTATE AMINO TRANSFERASE 76 U/L (10-37); BILIRUBIN,TOTAL 0.5 MG/DL (0.1-1.0); BLOOD UREA NITROGEN 19 MG/DL (7-18); BUN/CREATININE RATIO 25.3 (5.4-32.0); CALCIUM 8.2 MG/DL (8.5-10.1); CHLORIDE 105 MMOL/L (99-107); CREATININE 0.75 MG/DL (0.60-1.10); GLUCOSE 124 MG/DL (70-104); MAGNESIUM 1.8 MG/DL (1.5-2.4); PHOSPHORUS 1.9 MG/DL (2.3-4.5); SODIUM 142 MMOL/L (135-145); TOTAL CARBON DIOXIDE 27.9 MMOL/L (24-32); TOTAL PROTEIN 5.2 G/DL (6.4-8.2); eGFR > 90 ML/MIN
[2020-08-25 03:26] LABS: POTASSIUM 2.8 MMOL/L (3.5-5.1)
[2020-08-25 03:30] LABS: ABG BASE EXCESS 3.1 mmol/L (-2.0-2.0); ABG HCO3 26.6 mmol/L (22.0-26.0); ABG OXYGEN SATURATION 95.9 % (94-97); ABG PCO2 (T) 35.9 mmHg (35.0-48.0); ABG PO2 (T) 73.6 mmHg (75.0-100.0); ALLEN'S TEST POSITIVE; FCOHb 0.1 % (0.0-3.9); FMetHb 0.3 % (0.0-1.5); FO2Hb 95.5 % (94-97); PATIENT TEMPERATURE 36.4; PEEP 5 cm H2O; TOTAL HEMOGLOBIN 13.1 G/dl (14.0-18.0)
[2020-08-25] MEDS: POTASSIUM BICARB 20meq eff tab 20 MEQ TABLET.EFF OGT PRN ×3 (03:33→13:19)
[2020-08-25] MEDS: valproate sod 250mg/5ml UD oral syrup OGT SCH ×4 (03:33→21:36)
--- NOTE | 2020-08-25 06:48 | NUR ---
Patient in room ICU 2043. I have received report from Haseeb DAVE and had the opportunity to ask questions and assume patient care.
[2020-08-25] MEDS: dextrose 5%-normal saline 1,000 ML IV SCH ×2 (07:10→21:45)
[2020-08-25] MEDS: K, MAG and/or Phos replacement - Verify level? MC SCH (08:00)
[2020-08-25] MEDS: docusate sodium 100mg/10ml UD cup OGT SCH ×2 (08:01→21:36)
[2020-08-25] MEDS: CefTRIAXone/D5W-Rocephin 1gm 50 ML IV SCH (08:01)
[2020-08-25] MEDS: enoxaparin 40mg/0.4ml syringe SUBCUT SCH (08:02)
[2020-08-25] MEDS: pantoprazole 40 MG vial IV SCH (08:02)
[2020-08-25] MEDS: lactobacillus rhamnosus 10,000 MMU CELLS/CAPSULE OGT SCH ×2 (08:02→21:36)
[2020-08-25] MEDS: NORepinephrine 8mg/ 250ml NS 250 ML IV SCH ×2 (09:16→23:45)
[2020-08-25] MEDS: insulin glargine (Lantus) pen - multi-dose SQ SCH (21:00)
[2020-08-25] MEDS ORDERED: NORepinephrine 8mg/ 250ml NS 250 ML IV ONE (23:42)
[2020-08-26] VITALS (27 sets, daily range): BP systolic 75–121; BP diastolic 35–75
[2020-08-26] MEDS: valproate sod 250mg/5ml UD oral syrup OGT SCH ×4 (01:29→19:27)
[2020-08-26 02:27] LABS: BASOPHILS % (AUTO) 0.3 % (0-1); EOSINOPHILS % (AUTO) 0.1 % (0-6); HEMATOCRIT 40.4 % (42.0-52.0); HEMOGLOBIN 13.6 g/dl (14.0-17.9); LYMPHOCYTES # (AUTO) 0.5 X10'3 (1.1-4.8); MEAN CORPUSCULAR HEMOGLOBIN 32.4 PG (27.0-31.0); MEAN CORPUSCULAR HGB CONC 33.7 g/dL (33.0-36.5); MEAN CORPUSCULAR VOLUME 96.2 FL (78-98); MEAN PLATELET VOLUME 10.3 FL (7.4-10.4); MONOCYTES # (AUTO) 1.9 X10'3 (0-0.9); MONOCYTES % (AUTO) 14.1 % (2-12); NEUTROPHILS % (AUTO) 81.5 % (42-75); PLATELET COUNT 131 X10'3 (140-440); RED CELL DISTRIBUTION WIDTH 14.1 % (11.5-14.5); WHITE BLOOD COUNT 13.5 X10'3 (4.5-11.0)
[2020-08-26 02:34] LABS: PARTIAL THROMBOPLASTIN TIME 27 SECONDS (22-32)
[2020-08-26 02:36] LABS: ALANINE AMINOTRANSFERASE 39 U/L (12-78); ALBUMIN/GLOBULIN RATIO 0.5 (1.1-1.5); ALKALINE PHOSPHATASE 62 IU/L (46-116); ANION GAP 7 (8-16); ASPARTATE AMINO TRANSFERASE 56 U/L (10-37); BILIRUBIN,TOTAL 0.6 MG/DL (0.1-1.0); BLOOD UREA NITROGEN 24 MG/DL (7-18); BUN/CREATININE RATIO 31.6 (5.4-32.0); CALCIUM 8.6 MG/DL (8.5-10.1); CHLORIDE 103 MMOL/L (99-107); CREATININE 0.76 MG/DL (0.60-1.10); GLUCOSE 102 MG/DL (70-104); MAGNESIUM 1.7 MG/DL (1.5-2.4); PHOSPHORUS 2.2 MG/DL (2.3-4.5); POTASSIUM 4.2 MMOL/L (3.5-5.1); SODIUM 139 MMOL/L (135-145); TOTAL CARBON DIOXIDE 29.2 MMOL/L (24-32); TOTAL PROTEIN 5.9 G/DL (6.4-8.2); eGFR > 90 ML/MIN
[2020-08-26 03:31] LABS: ABG HCO3 24.7 mmol/L (22.0-26.0); ABG PCO2 (T) 33.5 mmHg (35.0-48.0); ABG PO2 (T) 63.5 mmHg (75.0-100.0); ALLEN'S TEST POSITIVE; FCOHb 0.2 % (0.0-3.9); FMetHb 0.3 % (0.0-1.5); FO2Hb 93.5 % (94-97); PATIENT TEMPERATURE 37.3; PEEP 5 cm H2O; TOTAL HEMOGLOBIN 14.5 G/dl (14.0-18.0)
[2020-08-26] MEDS: midazolam 100mg in NS 100ml 100 ML IV PRN ×3 (03:48→19:28)
[2020-08-26] MEDS: lactobacillus rhamnosus 10,000 MMU CELLS/CAPSULE OGT SCH ×2 (07:40→19:27)
[2020-08-26] MEDS: docusate sodium 100mg/10ml UD cup OGT SCH ×2 (07:40→19:27)
[2020-08-26] MEDS: pantoprazole 40 MG vial IV SCH (07:40)
[2020-08-26] MEDS: enoxaparin 40mg/0.4ml syringe SUBCUT SCH (07:40)
[2020-08-26] MEDS: CefTRIAXone/D5W-Rocephin 1gm 50 ML IV SCH (07:40)
[2020-08-26] MEDS: K, MAG and/or Phos replacement - Verify level? MC SCH (08:00)
--- NOTE | 2020-08-26 10:30 | NUR ---
notified Dr. Banks of patient's family updated contact numbers and that patient was positive for Staph A in the sputum. No new orders recieved.
[2020-08-26] MEDS: dextrose 5%-normal saline 1,000 ML IV SCH ×2 (12:48→23:10)
--- NOTE | 2020-08-26 17:51 | NUR ---
Dr. Banks contacted family for family meeting tomorrow. Piano Machine Operator, Sailaja was notified and she is allowing two family members.
--- NOTE | 2020-08-26 18:11 | NUR ---
Patient report given, questions answered & plan of care reviewed with Satish DAVE.
[2020-08-26] MEDS: insulin glargine (Lantus) pen - multi-dose SQ SCH (19:28)
[2020-08-27] VITALS (15 sets, daily range): BP systolic 93–123; BP diastolic 50–66
[2020-08-27] MEDS: midazolam 100mg in NS 100ml 100 ML IV PRN ×2 (01:00→08:16)
[2020-08-27 02:45] LABS: BASOPHILS % (AUTO) 0.1 % (0-1); EOSINOPHILS # (AUTO) 0.2 X10'3 (0-0.9); HEMATOCRIT 33.8 % (42.0-52.0); HEMOGLOBIN 11.4 g/dl (14.0-17.9); LYMPHOCYTES # (AUTO) 0.8 X10'3 (1.1-4.8); LYMPHOCYTES % (AUTO) 4.7 % (21-51); MEAN CORPUSCULAR HEMOGLOBIN 33.1 PG (27.0-31.0); MEAN CORPUSCULAR HGB CONC 33.9 g/dL (33.0-36.5); MEAN CORPUSCULAR VOLUME 97.7 FL (78-98); MEAN PLATELET VOLUME 10.4 FL (7.4-10.4); MONOCYTES # (AUTO) 1.9 X10'3 (0-0.9); MONOCYTES % (AUTO) 11.7 % (2-12); NEUTROPHILS # (AUTO) 13.7 X10'3 (1.8-7.7); NEUTROPHILS % (AUTO) 82.5 % (42-75); PLATELET COUNT 120 X10'3 (140-440); RED BLOOD COUNT 3.46 X10'6 (4.70-6.10); RED CELL DISTRIBUTION WIDTH 14.2 % (11.5-14.5); WHITE BLOOD COUNT 16.6 X10'3 (4.5-11.0)
[2020-08-27 02:50] LABS: PARTIAL THROMBOPLASTIN TIME 30 SECONDS (22-32)
[2020-08-27 02:59] LABS: ALANINE AMINOTRANSFERASE 26 U/L (12-78); ALBUMIN 1.5 G/DL (3.4-5.0); ALBUMIN/GLOBULIN RATIO 0.4 (1.1-1.5); ALKALINE PHOSPHATASE 54 IU/L (46-116); ANION GAP 4 (8-16); ASPARTATE AMINO TRANSFERASE 28 U/L (10-37); BILIRUBIN,TOTAL 0.4 MG/DL (0.1-1.0); BLOOD UREA NITROGEN 23 MG/DL (7-18); BUN/CREATININE RATIO 26.7 (5.4-32.0); CALCIUM 8.2 MG/DL (8.5-10.1); CHLORIDE 108 MMOL/L (99-107); CREATININE 0.86 MG/DL (0.60-1.10); GLUCOSE 155 MG/DL (70-104); MAGNESIUM 1.6 MG/DL (1.5-2.4); SODIUM 144 MMOL/L (135-145); TOTAL CARBON DIOXIDE 32.2 MMOL/L (24-32); TOTAL PROTEIN 5.1 G/DL (6.4-8.2); eGFR 90 ML/MIN
[2020-08-27] MEDS: valproate sod 250mg/5ml UD oral syrup OGT SCH ×2 (02:59→07:19)
[2020-08-27 03:01] LABS: POTASSIUM 2.8 MMOL/L (3.5-5.1)
[2020-08-27 03:02] LABS: PHOSPHORUS 1.2 MG/DL (2.3-4.5)
[2020-08-27] MEDS ORDERED: sodium phosphate inj. 30 MMOL in dextrose 5%-water 250 ML IV PRN (03:15)
[2020-08-27] MEDS ORDERED: magnesium 4gm in 100ml NS 100 ML IV PRN (03:20)
[2020-08-27] MEDS ORDERED: magnesium 2GM in 50ml NS 50 ML IV PRN (03:20)
[2020-08-27] MEDS: potassium Cl 20mEq/100mL bag 100 ML IV PRN ×4 (03:43→08:29)
[2020-08-27] MEDS: NORepinephrine 8mg/ 250ml NS 250 ML IV SCH (04:38)
[2020-08-27 06:26] LABS: ABG BASE EXCESS 7.1 mmol/L (-2.0-2.0); ABG HCO3 30.1 mmol/L (22.0-26.0); ABG PCO2 (T) 38.6 mmHg (35.0-48.0); ABG PO2 (T) 70.3 mmHg (75.0-100.0); ALLEN'S TEST POSITIVE; FMetHb 0.1 % (0.0-1.5); FO2Hb 93.9 % (94-97); PATIENT TEMPERATURE 38.1; PEEP 5 cm H2O; TOTAL HEMOGLOBIN 12.5 G/dl (14.0-18.0)
[2020-08-27] MEDS: docusate sodium 100mg/10ml UD cup OGT SCH (07:19)
[2020-08-27] MEDS: lactobacillus rhamnosus 10,000 MMU CELLS/CAPSULE OGT SCH (07:19)
[2020-08-27] MEDS: CefTRIAXone/D5W-Rocephin 1gm 50 ML IV SCH (07:19)
[2020-08-27] MEDS: pantoprazole 40 MG vial IV SCH (07:19)
[2020-08-27] MEDS: enoxaparin 40mg/0.4ml syringe SUBCUT SCH (07:20)
[2020-08-27] MEDS: insulin regular, human U-100 3ml vial - multi-dose SQ SCH (07:47)
[2020-08-27] MEDS: K, MAG and/or Phos replacement - Verify level? MC SCH (08:00)
--- NOTE | 2020-08-27 09:48 | NUR ---
Dr Banks at bedside; orders received to turn off versed.
--- NOTE | 2020-08-27 12:03 | NUR ---
Reassessment: Patient has been made DNR with comfort care. Tube feed diet order has been discontinued. Will continue to follow per LOS. Recommendations: 1) Bowel care per comfort care measures Addendum: 08/27/20 at [address] Amended: Links added.
[2020-08-27] MEDS: LORazepam 2 mg/ml vial IV PRN ×7 (13:10→23:36)
[2020-08-27] MEDS: morphine 2 MG/ML inj. syringe IV PRN ×7 (13:12→21:38)
--- NOTE | 2020-08-27 13:44 | NUR ---
[facility] notified patient is intubated and DNR with Comfort Care. Spoke with Jose Antonio from [facility]. Reference # [id number]. Patient extubated to comfort care at 1332 with family and RT at bedside. 2L NC placed on patient by RT and comfort care medications given. Will continue to monitor.
--- NOTE | 2020-08-27 14:30 | NUR ---
Dr. Banks notified patient is having difficulty breathing; new orders received.
--- NOTE | 2020-08-27 15:48 | NUR ---
patient report called to Lynne DAVE; all questions answered.
--- NOTE | 2020-08-27 16:46 | NUR ---
patient transferred to [facility] with all belongings
--- NOTE | 2020-08-27 17:05 | NUR ---
Patient in room MED 308. I have received report from Dominic DAVE and had the opportunity to ask questions and assume patient care.
--- NOTE | 2020-08-27 17:15 | NUR ---
Pt in room 308 his family are at bedside. Oriented family to room, call light, TV etc. Ordered a comfort tray family. Pt shoes no S/S of distress his family stated he is showing so S/S of the pain and anxiety coming back and nurse told them to let her know whenever he needs it and he can have Q hr and they stated understanding that and told them anything they need to let staff know and they stated they would.
--- NOTE | 2020-08-27 18:00 | NUR ---
Problems reprioritized. Patient report given, questions answered & plan of care reviewed with Joy DAVE.
--- NOTE | 2020-08-27 18:00 | NUR ---
Patient in room MED 308. I have received report from Lynne DAVE and had the opportunity to ask questions and assume patient care.
[2020-08-28] MEDS: morphine 2 MG/ML inj. syringe IV PRN ×3 (00:39→17:05)
--- NOTE | 2020-08-28 01:00 | NUR ---
Patient spouse asked me why patient is not getting morphine and ativan q 1 hour. I educted patient on the medication orders and explained that the morphine was prn q 1 hour for pain, as needed and the ativan was for agitation as needed for q 1 hour. The spouse said to me, "honey, he is not in pain. The medication is there for him to faster. He needs to by the morning. The doctor told me that." I told the spouse that I cannot give medication more frequently for that reason. I am to make the patient comfortable. I education her and told her that whenever she notices him in more pain or irritation, to let me know and that I can give per protocol.
[2020-08-28] MEDS: LORazepam 2 mg/ml vial IV PRN ×2 (03:52→17:04)
--- NOTE | 2020-08-28 06:19 | NUR ---
Problems reprioritized. Patient report given, questions answered & plan of care reviewed with Lynne DAVE.
--- NOTE | 2020-08-28 06:30 | NUR ---
Pt's had stayed the night with her . She was given a cup of tea. She was asking "why isnt he getting Morphine every hour? She stated that the MD said "he would get it every hour, and he didn't get it every hour last night" Nurse explained that the Dr's order was for prn not an order to give it every hour, prn is as needed. Explained that she could keep track and and ask the nurse to give if he looks uncomfortable, anxious and or painful. She can keep track of the clock if she wanted do but she needs to ask for it. She stated understanding.
--- NOTE | 2020-08-28 17:42 | NUR ---
PATIENT PASSED. GREGORIA ADAMS NOTIFIED. OK FOR RN TO PRONOUNCE
--- NOTE | 2020-08-28 18:00 | NUR ---
RN IS TO DOCUMENT YES TO ALL APPLICABLE AREAS Pronouncement of : 1. Time Physician Notified: [id number] 2. Date of : 08/28/20 3. Time of : 1744 4. DNR/Withdraw life support documented:yes 5. Monitor strip has been placed on chart:Yes 6. Assessment process is of one-minute duration and includes following criteria: a) Patient is unresponsive to all stimuli: Yes b) Pupils fixed and non-reactive:Yes c) Auscultation of precordium reveals absence of heart tones:Yes d) Auscultation of lungs reveals absence of breath sounds:Yes e) Absence of blood pressure / all vital signs:Yes f) QRS complexes are not present on monitor / EKG strip:Yes g) Pacer spikes without capture: 4. Comments:
--- NOTE | 2020-08-28 18:25 | NUR ---
Patient in room MED 308. I have received report from Lynne DAVE and had the opportunity to ask questions and assume patient care.
--- NOTE | 2020-08-28 19:37 | NUR ---
Post mortem care is done. All lines have been removed. Patient is awaiting mortuary.
--- NOTE | 2020-08-28 22:02 | NUR ---
[facility] came and took the patient with his belongings.
== END 2020-08-28 22:13 | disposition expired | DRG 461 ==
LOC: ER 10:34 → ICU 2S 13:28 → ER 14:26 → ICU 2S 14:27 → MED 3N 08-27 16:31
PROVIDERS: ADMIT Internal Medicine Critical Care Medicine; ATTEND Internal Medicine Critical Care Medicine
PROC: 5A12012 Performance of Cardiac Output, Single, Manual (ICD-10-PCS; 2020-08-20)
PROC: 06HM33Z Insertion of Infusion Device into Right Femoral Vein, Percutaneous Approach (ICD-10-PCS; 2020-08-20)
PROC: 5A1955Z Respiratory Ventilation, Greater than 96 Consecutive Hours (ICD-10-PCS; 2020-08-20)
PROC: 0BH17EZ Insertion of Endotracheal Airway into Trachea, Via Natural or Artificial Opening (ICD-10-PCS; 2020-08-20)
PROC: 4A00X4Z Measurement of Central Nervous Electrical Activity, External Approach (ICD-10-PCS; 2020-08-23)
PROC: 4A00X4Z Measurement of Central Nervous Electrical Activity, External Approach (ICD-10-PCS; principal; 2020-08-26)
DX: C67.9 Malignant neoplasm of bladder, unspecified (principal); I46.9 Cardiac arrest, cause unspecified; Z51.5 Encounter for palliative care; I48.91 Unspecified atrial fibrillation; Z85.9 Personal history of malignant neoplasm, unspecified; R31.9 Hematuria, unspecified; Z20.828 Contact with and (suspected) exposure to other viral communicable diseases; W18.39XA Other fall on same level, initial encounter; Z88.0 Allergy status to penicillin; Z79.899 Other long term (current) drug therapy; Z85.828 Personal history of other malignant neoplasm of skin; Z87.892 Personal history of anaphylaxis; Z90.81 Acquired absence of spleen; Z93.3 Colostomy status; Z88.8 Allergy status to other drugs, medicaments and biological substances; Y93.89 Activity, other specified; Y92.89 Other specified places as the place of occurrence of the external cause; Y99.8 Other external cause status
CPT/HCPCS: 31500; 36415; 36556; 36600; 70450; 70551; 71045; 72125; 80048; 80053; 80305; 80320; 81001; 82140; 82803; 82810; 82948; 83036; 83605; 83735; 83880; 84100; 84132; 84134; 84145; 84439; 84443; 84484; 85018; 85025; 85379; 85610; 85730; 87040; 87070; 87077; 87081; 87088; 87186; 87635; 93005; 93308; 94002; 94003; 94640; 94760; 94799; 95816; 99291; 99292; C9113; C9803; G0378; J0461; J0696; J1265; J1650; J1815; J2060; J2270; J3010; J3480; J7030; J7042; J7060